=== PATIENT | male | born 1995 | race Caucasian/White ===

== ENCOUNTER 2018-10-24 16:22 | Emergency (ER) | payer BC ==
--- NOTE | 2018-10-24 16:39 | ED.PDOC ---
History of Present Illness - General Chief Complaint: General Stated Complaint: Palpitations, chest tightness Time Seen by Provider: 10/24/18 16:25 Source: patient Exam Limitations: no limitations - History of Present Illness Initial Comments: Stephanie Gonzalez 23 y/o male brought by friend to ER stating had tight feeling on his chest that went down to his back then felt pounding heart beat took 3 Aspirin 81 mg and 2 shot of whiskey about 1500H then on his arrival here felt getting better.No diaphoresis,no sob,no N/V.Denies heart problems.Stated happened to him once several years ago. Timing/Duration: 1-3 hours Severity: moderate Improving Factors: nothing Worsening Factors: nothing Allergies/Adverse Reactions: Allergies NO KNOWN ALLERGY Allergy (Verified 10/24/18 16:38) Home Medications: Ambulatory Orders NK 10/24/18 Review of Systems - Review of Systems Cardiology: States: see HPI All other Systems: Reviewed and Negative, No Change from Baseline Past Medical History (General) - Patient Medical History Hx Seizures: No Hx Asthma: No Hx Cardiac Disorders: No Surgical History: no surgical history - Social History Hx Tobacco Use: No Hx Alcohol Use: Yes - occasionally but denies heavy drinking Hx Physical Abuse: No Hx Emotional Abuse: No Hx Suspected Abuse: No Family Medical History - Family History Father Family History: No Known Physical Exam - Physical Exam General Appearance: Alert, Comfortable, No apparent distress Eye Exam: bilateral normal Ears, Nose, Throat: hearing grossly normal, normal ENT inspection, normal pharynx Neck: non-tender, full range of motion, supple, normal inspection Respiratory: chest non-tender, lungs clear, normal breath sounds, no respiratory distress Cardiovascular/Chest: normal peripheral pulses, regular rate, rhythm, no murmur Peripheral Pulses: radial,right: 2+, radial,left: 2+ Gastrointestinal/Abdominal: non tender, soft, no organomegaly Back Exam: no CVA tenderness, no vertebral tenderness Extremity: no pedal edema, no calf tenderness Neurologic: alert, normal mood/affect Skin Exam: normal color, warm/dry Progress - Progress Progress: 10/24/18 16:42 DECLINED TO HAVE BLOOD WORK DONE STATED CHEST TIGHTNESS TOTALLY GONE;FEELING BETTER WANTS TO GO BACK TO [place] NEED TO COME TO ER IF SYMPTOMS RECURS - EKG/XRAY/CT EKG: Sinus, nonspecific ST T wave Chg Comments: [id number] Departure - Departure Clinical Impression: Chest tightness, Heart palpitations, Blood test declined Time of Disposition: 16:45 Disposition: Discharge to Home or Self Care Condition: Good Departure Forms: ED Discharge - Pt. Copy, Patient Portal Self Enrollment Instructions: Chest Pain (DC) Home Medications: Ambulatory Orders NK 10/24/18 Additional Instructions: RETURN TO EMERGENCY ROOM IF SYMPTOMS WORSENS
[2018-10-24 16:40] VITALS: TEMP 99.1
[2018-10-24] MEDS ORDERED: ASPIRIN (CHEWABLE) 81 MG TAB PO ONE (16:45)
[2018-10-24 17:09] VITALS: BP 151/84; O2SAT 98
== END 2018-10-24 16:53 | disposition home or self-care (01) ==
LOC: ER 16:22
DX: R07.89 Other chest pain (principal); R00.2 Palpitations